=== PATIENT | male | born 1965 | race Hispanic/Latino ===

== ENCOUNTER 2021-04-19 00:14 | Emergency (ER) | payer OTHER ==
[~2021-04-19] VITALS: Ht 175.3 cm; Wt 130.2 kg
[~2021-04-19 00:14] MED LIST: FLOMAX0.4 MG PO; LISINOPRIL2.5 MG PO; METFORMIN HCL500 MG PO
[2021-04-19] MEDS ORDERED: TETANUS/DIPHTHERIA TOX ADULT 0.5 ML SYR ONE (01:06)
[2021-04-19] MEDS ORDERED: CEPHALEXIN500 MG PO (01:10)
[2021-04-19] MEDS ORDERED: TYLENOL # 31 EA PO (01:13)
[2021-04-19] MEDS ORDERED: TETANUS/DIPHTHERIA TOX ADULT 0.5 ML SYR IM ONE (01:30)
== END 2021-04-19 01:34 | disposition home or self-care (01) ==
LOC: FSED 01:07
DX: S81.012A Laceration without foreign body, left knee, initial encounter (principal); W45.8XXA Other foreign body or object entering through skin, initial encounter; G47.33 Obstructive sleep apnea (adult) (pediatric); I10 Essential (primary) hypertension
CPT/HCPCS: 90471; 90714; 99284